=== PATIENT | male | born 1995 | race Caucasian/White ===

== ENCOUNTER 2017-01-09 17:23 | Emergency (ER) | payer OTHER ==
[2017-01-09 17:32] VITALS: BP 117/79
[2017-01-09] MEDS ORDERED: IBUPROFEN 800 MG TABLET PO STA (18:24)
--- NOTE | 2017-01-09 18:32 | ED Physician Documentation ---
PD HPI UPPER EXT INJURY - Stated complaint Stated Complaint: FINGER LAC - Chief complaint Chief Complaint: Ext Problem - History obtained from History obtained from: Patient - History of Present Illness Location: Right, Finger (5th) Type of injury: Laceration Where injury occurred: Home Timing - onset: How many hours ago (1) Timing - duration: Hours (1) Timing - details: Abrupt onset Pain level max: 7 Pain level now: 4 Improved by: Rest Worsened by: Moving, Palpating Associated symptoms: No: Weakness, Numbness, Tingling, Swelling, Discolored Contributing factors: No: Anticoagulated, Prior ortho surgery, Prosthetic joint Similar symptoms before: Has not had sx before Recently seen: Not recently seen - Additonal information Additional information: states dropped a razor blade and tried to catch it. lacerated R 5th digit. Review of Systems Neurologic: denies: Focal weakness, Numbness, Headache PD PAST MEDICAL HISTORY - Past Medical History Past Medical History: Yes Other Past Medical History: pectus excavitum - Past Surgical History Past Surgical History: Yes HEENT: Tonsil/Adenoidectomy - Present Medications Home Medications: Ambulatory Orders Medication Instructions Recorded Confirmed Ibuprofen [Motrin] 800 mg PO Q8H PRN #30 tablet 01/09/17 - Allergies Allergies/Adverse Reactions: Allergies Allergy/AdvReac Type Severity Reaction Status Date / Time No Known Drug Allergies Allergy Verified 01/09/17 17:32 - Social History Does the pt smoke?: Yes Smoking Status: Current every day smoker Does the pt drink ETOH?: No Does the pt have substance abuse?: No - Immunizations Immunizations are current?: Yes PD ED PE NORMAL - Vitals Vital signs reviewed: Yes - General General: Alert and oriented X 3, No acute distress - Derm Derm: Warm and dry - Extremities Extremities: Other (r 5th digit - NVI. flap laceration over the dorsal aspect of the prox phalanx. No tendon injury. FROM present. Strong against resistance. ) - Neuro Neuro: Alert and oriented X 3 - Psych Psych: Normal mood, Normal affect Results - Vitals Vitals: Vital Signs - 24 hr 01/09/17 17:30 Temperature 36.9 C Heart Rate 75 Respiratory 18 Rate Blood Pressure 117/79 O2 Saturation 100 Oxygen O2 Source Room air Procedures - Laceration (location) R 5th digit Length in cm: 2 Wound type: Curved, Flap, Clean Neurovascular status: Sensory intact, Motor intact, Vascular intact Tendon involvement: Tendon intact. No: Tendon Injury Wound Preparation: Irrigated copiously NS Skin layer closure: Dermabond Other: Patient tolerated well, No complications, Neurovascular intact, Dressing applied (finger splint), Tetanus UTD Complexity: Simple PD MEDICAL DECISION MAKING - ED course Complexity details: reviewed results, re-evaluated patient, considered differential, d/w patient ED course: Patient is a 21-year-old male who sustained a laceration to the dorsum of the right fifth digit, proximal phalanx. Does have pain with range of motion, but tendon appears intact. The wound was explored to the base. Full range of motion, extension and flexion against resistance. The wound is very superficial and concerned that sutures would not hold well, after discussion with the patient, we will place him on Dermabond with a finger splint and see how he progresses. Recommended to him that if he has having continued pain he should follow-up with a hand specialist for repeat evaluation. Patient counseled regarding signs and symptoms for which I believe and urgent re- evaluation would be necessary. Patient with good understanding of and agreement to plan and is comfortable going home at this time This document was made in part using voice recognition software. While efforts are made to proofread this document, sound alike and grammatical errors may occur. Departure - Departure Disposition: 01 Home, Self Care Clinical Impression: Finger laceration Qualifiers: Encounter type: initial encounter Finger: little finger Damage to nail status: without damage Foreign body presence: without foreign body Laterality: right Qualified Code(s): S61.216A - Laceration without foreign body of right little finger without damage to nail, initial encounter Condition: Good Instructions: ED Laceration Hand Follow-Up: Nehemias Quintana MD [Primary Care Provider] - Within 1 week (for wound check) Prescriptions: Ibuprofen [Motrin] 800 mg PO Q8H PRN #30 tablet PRN Reason: PAIN &/OR FEVER Comments: You need to wear the splint for the next 7-10 days. Follow-up with your doctor before removing the splint to ensure that enough healing has occurred. Return if you worsen. Discharge Date/Time: 01/09/17 18:38
[2017-01-09] MEDS ORDERED: IBUPROFEN 800 MG TABLET PO ONE (18:37)
== END 2017-01-09 18:38 | disposition home or self-care (01) ==
LOC: ED 17:23
DX: S61.216A Laceration without foreign body of right little finger without damage to nail, initial encounter (principal); W26.8XXA Contact with other sharp object(s), not elsewhere classified, initial encounter; Y92.019 Unspecified place in single-family (private) house as the place of occurrence of the external cause; Q67.6 Pectus excavatum; F17.200 Nicotine dependence, unspecified, uncomplicated
CPT/HCPCS: 12001; 99283; A9270

== ENCOUNTER 2017-12-13 16:52 | Emergency (ER) | payer OTHER ==
[2017-12-13 17:29] LABS: MUDS CUTOFF CONCENTRATIONS CUTOFF CONC BELOW:
[2017-12-13 17:41] LABS: AMPHETAMINE SCREEN,URINE NEGATIVE (NEGATIVE); BENZODIAZEPINES SCREEN, URINE NEGATIVE (NEGATIVE); COCAINE SCREEN URINE NEGATIVE (NEGATIVE); METHADONE SCREEN, URINE NEGATIVE (NEGATIVE); METHAMPHETAMINES SCREEN, URINE NEGATIVE (NEGATIVE); OPIATE SCREEN, URINE NEGATIVE (NEGATIVE); OXYCODONE SCREEN, URINE NEGATIVE (NEGATIVE); PROPOXYPHENE SCREEN, URINE NEGATIVE (NEGATIVE); TRICYCLIC ANTIDEPRESSANT,URINE NEGATIVE (NEGATIVE)
[2017-12-13 18:02] LABS: ALBUMIN 4.7 g/dL (3.2-5.5); ALBUMIN/GLOBULIN RATIO 1.7 (1.0-2.2); ALKALINE PHOSPHATASE 39 IU/L (42-121); ALT ALANINE AMINOTRANSFERASE 11 IU/L (10-60); AST ASPARTATE AMINOTRANSFERASE 12 IU/L (10-42); BILIRUBIN,TOTAL 0.4 mg/dL (0.2-1.0); BUN - BLOOD UREA NITROGEN 13 mg/dL (6-20); CALCIUM 9.6 mg/dL (8.5-10.3); CARBON DIOXIDE - CO2 29 mmol/L (21-32); CHLORIDE 103 mmol/L (101-111); CREATININE 0.8 mg/dL (0.6-1.2); GFR - MDRD 122 (>89); GLUCOSE 92 mg/dL (70-100); LIPASE 28 U/L (22-51); SALICYLATE < 6.0 mg/dL; SODIUM 139 mmol/L (135-145); TOTAL PROTEIN 7.5 g/dL (6.7-8.2)
[2017-12-13 18:05] LABS: ACETAMINOPHEN < 10 ug/mL (10-30)
--- NOTE | 2017-12-13 22:02 | ED Physician Documentation ---
PD HPI MHE - Stated complaint Stated Complaint: SI/MHE - Chief complaint Chief Complaint: MHE - History obtained from History obtained from: Patient - History of Present Illness Primary symptom: Depression Timing - onset: How many months ago (2) Pain level max: 0 Pain level now: 0 Contributing factors: Family Recently seen: Not recently seen - Additional information Additional information: Patient complains of feeling depressed for approximately two months with vague suicidal ideation, but no specific plan nor time frame in mind. He felt more depressed since last night after having a minor argument with his . 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 He presents the emergency department voluntarily for mental health evaluation. he says he has been recently evaluated at [facility] for mental health, and was told he would likely benefit from being on an antidepressant, and thus was being referred to a psychiatrist. Unfortunately, the closest appointment to see the psychiatrist is one month away. Review of Systems Cardiac: reports: Reviewed and negative Respiratory: reports: Reviewed and negative GI: reports: Reviewed and negative Psychiatric: reports: Depressed, Suicidal (vague suicidal thoughts without specific plans nor timeframe). denies: Homicidal PD PAST MEDICAL HISTORY - Past Medical History Past Medical History: Yes Psych: Depression, Other Other Past Medical History: SI - Past Surgical History Past Surgical History: Yes HEENT: Tonsil/Adenoidectomy - Present Medications Home Medications: Ambulatory Orders Medication Instructions Recorded Confirmed Ibuprofen [Motrin] 800 mg PO Q8H PRN #30 tablet 01/09/17 Mirtazapine [Remeron] 7.5 mg PO HS #20 tablet 12/14/17 - Allergies Allergies/Adverse Reactions: Allergies Allergy/AdvReac Type Severity Reaction Status Date / Time No Known Drug Allergies Allergy Verified 12/13/17 17:20 - Social History Does the pt smoke?: Yes Smoking Status: Current every day smoker Does the pt drink ETOH?: No Does the pt have substance abuse?: No - Immunizations Immunizations are current?: Yes PD ED PE NORMAL - Vitals Vital signs reviewed: Yes - General General: Alert and oriented X 3, No acute distress, Well developed/nourished - HEENT HEENT: PERRL, EOMI - Cardiac Cardiac: RRR, No murmur - Respiratory Respiratory: No respiratory distress, Clear bilaterally - Neuro Neuro: Alert and oriented X 3, hourly shift manager 2-12 intact, Normal speech Eye Opening: Spontaneous Motor: Obeys Commands Verbal: Oriented GCS Score: 15 - Psych Psych: Normal mood, Normal affect Results - Vitals Vitals: Vital Signs - 24 hr 12/14/17 09:42 Heart Rate 68 Respiratory 16 Rate Blood Pressure 123/68 O2 Saturation 99 Oxygen O2 Source Room air - Labs Labs: Laboratory Tests 12/13/17 12/13/17 17:20 17:43 Sodium 139 Potassium 3.9 Chloride 103 Carbon Dioxide 29 Anion Gap 7.0 BUN 13 Creatinine 0.8 Estimated GFR (MDRD) 122 Glucose 92 Calcium 9.6 Total Bilirubin 0.4 AST 12 ALT 11 Alkaline Phosphatase 39 L Total Protein 7.5 Albumin 4.7 Globulin 2.8 Albumin/Globulin Ratio 1.7 Lipase 28 Salicylates < 6.0 Urine Opiates Screen NEGATIVE Ur Oxycodone Screen NEGATIVE Urine Methadone Screen NEGATIVE Ur Propoxyphene Screen NEGATIVE Acetaminophen < 10 L Ur Barbiturates Screen NEGATIVE Ur Tricyclics Screen NEGATIVE Ur Phencyclidine Scrn NEGATIVE Ur Amphetamine Screen NEGATIVE U Methamphetamines Scrn NEGATIVE U Benzodiazepines Scrn NEGATIVE Urine Cocaine Screen NEGATIVE U Cannabinoids Screen NEGATIVE Ethyl Alcohol < 5.0 PD MEDICAL DECISION MAKING - ED course Complexity details: reviewed results, re-evaluated patient, considered differential, d/w patient ED course: obtained Telepsych consult. There was some delay between request for the consult and when it was done. I was not informed when it was complete, and only noticed by checking in the computer notes and coming across the note from the Telepsych plater hot dip. I had felt patient was able to contract for safety and intended to send patient home, but both patient and I agreed that patient would benefit from starting an antidepressant now rather than waiting another month to see psychiatry. The note from Telepsych suggests admission to hospital for this patient and rx remeron 7.5mg PO QHS. Thus, patient held until SW could eval in AM (patient was very understanding, calm, and cooperative when I explained the situation to him). SW agrees with my original plan, which is d/c home and f/u later today at [facility] to expedite, if possible, mental health evaluation. - Sepsis Event Vital Signs: Vital Signs - 24 hr 12/14/17 09:42 Heart Rate 68 Respiratory 16 Rate Blood Pressure 123/68 O2 Saturation 99 Oxygen O2 Source Room air Departure - Departure Disposition: 01 Home, Self Care Clinical Impression: Depressive disorder Condition: Good Instructions: ED Depression Follow-Up: CHRISTINE Antunez [Provider Group] (Today) ANNAMARIA ALMENDAREZ DO [Primary Care Provider] - Prescriptions: Mirtazapine [Remeron] 7.5 mg PO HS #20 tablet Discharge Date/Time: 12/14/17 09:42
--- NOTE | 2017-12-14 02:19 | TELEPSYCH PHYS NOTE ---
Telepsych Note - CHIEF COMPLAINT/HX OF PRESENT ILLNESS Cheif Complaint and History of Present Illness: PT presents with c/o feeling depressed and suicidal HPI: Pt is a 22y/o mwm with who presents with c/o feeling depressed and suicidal. He denied having a plan or h/o attempts. Pt denied thoughts of harm to others or h/o violence beyond fights in high school. Pt c/o poor sleep, poor energy and poor appetite. He denied h/o trauma or abuse. He denied s/o leilani. He does endorse visual hallucinations of seeing shadows and feeling unsafe when home alone. He admits to feeling hopeless and said his is worried about him. Pt says he drinks alcohol but denied h/o blackouts, DTs or sz. He tried marijuana "years ago" but denied further illicit drug use. - SI/HI/SELF HARM SI/HI/SELF HARM (CURRENT OR HISTORY OF):: SI SI/HI/Self Harm Text (Current or History of):: Pt denied having a plan or h/o self harm. He says he has been feeling suicidal the past few months and it is getting worse. He denied any stressors or contributors to depression - VIOLENCE/LEGAL/COLLATERAL Violence - Legal - Collateral: NO legal issues - PSYCHIATRIC HX/TREATMENT HX Psychiatric: Depression, Other Psychiatric/Treatment Hx Other: Pt says he went to therapy as a child when his parents . He denied hospitalizations or substance treatment. - DRUG/ALCOHOL HX Substance use/abuse/alcohol text: Pt says he drinks some alcohol but denied blackouts, DTs or sz. He tried marijuana in the past but denied current illicit drug use. - MEDICAL HX Does the pt have a hx of MRSA?: No Neurological History: Migraines PMH Other: PT says he has migraines. He denied h/o sz or head trauma - HOME MEDICATIONS Home Meds (as last confirmed): Celebrex - ALLERGIES Allergies (as last confirmed): Allergies Allergy/AdvReac Type Severity Reaction Status Date / Time No Known Drug Allergies Allergy Verified 12/13/17 17:20 - FAMILY PSYCH/SUICIDE/SOCIAL HX-MENTAL Family - Suicide - Social Hx and Mental Status Exam: Pt said his uncle has schizoaffective d/o; His father is an alcoholic and mom binge drinks. His maternal grandmother is an alcoholic. Pt is not aware of any suicides in the family. - PATIENT PROBLEM LIST (1) Depression Qualifiers: Depression Type: major depressive disorder Active/Remission status: currently active Major depression episode severity: severe Psychotic features: with psychotic features Impression: Pt reports chronic depression that has gotten worse of the past few months to the point of feeling suicidal. He denied contributors and said it came out of the blue. He has no substance issues. FH is positive for an uncle with schizoaffective d/o and alcohol abuse on both sides of his family. MSE: PT presents appropriately groomed with limited eye contact. His speech is soft but normal rate. He reports feeling hopeless and depressed and he displays a constricted affect. Thought process was linear and goal directed. He denied s/o leilani and did not appear manic. He admits to seeing shadows. He did not appear to be responding to internal stimuli. Insight and judgment were fair. (2) Suicidal ideation Impression: Pt with no prior self harm, however, severe depression along with reports of paranoia and visual hallucinations may contribute to elevated risk of acting on thoughts of self harm. (3) Visual hallucination Impression: PT does endorse seeing shadows and feeling unsafe when alone. He has a fh significant for psychosis, however he also describes major depression. Hallucinations possibly due to severe depression vs new onset psychosis. - TREATMENT/PHARMACOLOGICAL RECOMMENDATION Treatment - Pharmacological - Therapy Recommendations: 22y/o mwm with depression presents with c/o feeling hopeless and suicidal. He admits to visual hallucinations of seeing shadows and feeling fearful when alone. He has a family hx significant of affective d/o and psychosis. Pt describes a major depressive episode with no stressors or identifiable precipitant. Psychotic sx may be a result of untreated depression vs possible onset of psychotic d/o. Given pt report of hopelessness, limited supports, concern of his and suicidal thoughts, recommend admit to inpatient for safety. 1. Admit to inpatient psych for mood stabilization and safety. 2. Provide safety precautions. 3. Recommend start Remeron 7.5mg po qhs for depression, insomnia and to boost appetite. - TIME SPENT & PROVIDER LOCATION Telepsych consultation conducted via videoconferencing: Yes List names and roles of persons who participated in consult: Patient. Andree Sandoval MD Telepsych Provider Location: [place] Time Telepsych consult began: 05:00 Time Telepsych consult completed: 05:45
[2017-12-14] MEDS ORDERED: NICOTINE 14 MG PATCH TOP STA (04:55)
[2017-12-14] MEDS ORDERED: CELECOXIB 100 MG CAPSULE PO STA (08:32)
[2017-12-14 09:42] VITALS: BP 123/68
== END 2017-12-14 09:42 | disposition home or self-care (01) ==
LOC: ED 16:52
DX: F32.3 Major depressive disorder, single episode, severe with psychotic features (principal); R45.851 Suicidal ideations; R44.1 Visual hallucinations
CPT/HCPCS: 36415; 80053; 80306; 80307; 80320; 80329; 83690; 99283; A9270; G0425; Q3014

== ENCOUNTER 2018-01-02 10:06 | Emergency (ER) | payer OTHER ==
[2018-01-02] MEDS ORDERED: IOPAMIDOL-300 100 ML VIAL IVP ONE ×2 (10:07→13:15)
--- NOTE | 2018-01-02 11:06 | XRAY Report ---
Reason: chest pain Procedure Date: 01/02/2018 Accession Number: [id number] / [id number] Procedure: XR - Chest 2 View X-Ray CPT Code: 53667 FULL RESULT: EXAM: CHEST RADIOGRAPHY EXAM DATE: 01/02/2018 10:56 AM. CLINICAL HISTORY: Acute chest pain. COMPARISON: None. TECHNIQUE: 2 views. FINDINGS: Lungs/Pleura: No focal opacities evident. No pleural effusion. No pneumothorax. Normal volumes. Mediastinum: Heart and mediastinal contours are unremarkable. Pectus excavatum. Other: None. IMPRESSION: No acute cardiopulmonary abnormality. RADIA
[2018-01-02 11:12] LABS: BASOPHILS % (AUTO) 0.6 %; EOSINOPHILS # (AUTO) 0.2 10^3/uL (0.0-0.7); EOSINOPHILS % (AUTO) 3.3 %; HGB - HEMOGLOBIN 14.8 g/dL (14.0-18.0); LYMPHOCYTES # (AUTO) 2.5 10^3/uL (1.5-3.5); LYMPHOCYTES % (AUTO) 45.6 %; MEAN CORPUSCULAR HEMOGLOBIN 29.9 pg (27.0-31.0); MEAN CORPUSCULAR HGB CONC 34.4 g/dL (32.0-36.0); MEAN CORPUSCULAR VOLUME 87.2 fL (80.0-94.0); MEAN PLATELET VOLUME 8.4 fL (7.4-11.4); MONOCYTES # (AUTO) 0.5 10^3/uL (0.0-1.0); MONOCYTES % (AUTO) 8.6 %; NEUTROPHILS # (AUTO) 2.3 10^3/uL (1.5-6.6); NEUTROPHILS % (AUTO) 41.9 %; PLT - PLATELET COUNT 187 10^3/uL (130-450); RED BLOOD COUNT 4.95 10^6/uL (4.70-6.10); RED CELL DISTRIBUTION WIDTH 14.1 % (12.0-15.0); WHITE BLOOD COUNT 5.6 x10^3/uL (4.8-10.8)
--- NOTE | 2018-01-02 11:33 | ED Physician Documentation ---
PD HPI CHEST PAIN - Stated complaint Stated Complaint: CHEST PAIN - Chief complaint Chief Complaint: Cardiac - History obtained from History obtained from: Patient - History of Present Illness Timing - onset: Today Timing - onset during: Light activity (he was standing with group for morning report. No strenuous activity.) Timing - details: Abrupt onset, Still present Quality: Aching, Sharp, Pain Location: Substernal, Left chest Radiation: Back Improved by: No: Rest Worsened by: Inspiration, Movement. No: Palpation Associated symptoms: Shortness of air, Feeling faint / dizzy. No: Diaphoresis, Nausea, General Weakness Similar symptoms before: Has not had sx before Recently seen: Not recently seen Review of Systems Constitutional: denies: Fever, Chills Nose: denies: Rhinorrhea / runny nose, Congestion Throat: denies: Sore throat Cardiac: denies: Palpitations, Pedal edema, Calf pain Respiratory: denies: Dyspnea, Cough, Hemoptysis, Wheezing GI: denies: Abdominal Pain, Nausea, Vomiting, Diarrhea Skin: denies: Rash, Lesions PD PAST MEDICAL HISTORY - Past Medical History Cardiovascular: None Respiratory: None Neuro: Migraines Psych: Depression, Other - Past Surgical History Past Surgical History: Yes HEENT: Tonsil/Adenoidectomy - Present Medications Home Medications: Ambulatory Orders Medication Instructions Recorded Confirmed Ibuprofen [Motrin] 800 mg PO Q8H PRN #30 tablet 01/09/17 Mirtazapine [Remeron] 7.5 mg PO HS #20 tablet 12/14/17 Naproxen 375 mg PO BID #20 tablet 01/02/18 Tramadol HCl 50 mg PO Q6H PRN #20 tablet 01/02/18 - Allergies Allergies/Adverse Reactions: Allergies Allergy/AdvReac Type Severity Reaction Status Date / Time No Known Drug Allergies Allergy Verified 12/13/17 17:20 - Social History Does the pt smoke?: Yes Smoking Status: Current every day smoker Does the pt drink ETOH?: No Does the pt have substance abuse?: No - Family History Family history: reports: Aortic aneursym - Immunizations Immunizations are current?: Yes PD ED PE NORMAL - Vitals Vital signs reviewed: Yes - General General: Alert and oriented X 3, No acute distress, Well developed/nourished - HEENT HEENT: Pharynx benign - Neck Neck: Supple, no meningeal sign, No adenopathy - Cardiac Cardiac: RRR, No murmur - Respiratory Respiratory: Clear bilaterally, Other (no chestwall tenderness) - Abdomen Abdomen: Soft, Non tender - Back Back: No CVA TTP, No spinal TTP - Derm Derm: Normal color, Warm and dry - Extremities Extremities: No tenderness to palpate, Normal ROM s pain, No edema, No calf tenderness / cord - Neuro Neuro: Alert and oriented X 3, No motor deficit, No sensory deficit, Normal speech Results - Vitals Vitals: Oxygen O2 Source Room air - EKG (time done) 10:16 Rate: Rate (enter#) (91) Rhythm: NSR [place]: Normal Intervals: Normal [place] Ischemia: Normal ST segments. No: ST elevation c/w ischemia, ST depression Compare to prior EKG: Old EKG unavailable - Labs Labs: Laboratory Tests 01/02/18 01/02/18 01/02/18 11:00 11:00 11:00 WBC 5.6 RBC 4.95 Hgb 14.8 Hct 43.1 MCV 87.2 MCH 29.9 MCHC 34.4 RDW 14.1 Plt Count 187 MPV 8.4 Neut # (Auto) 2.3 Lymph # (Auto) 2.5 Drew # (Auto) 0.5 Eos # (Auto) 0.2 Baso # (Auto) 0.0 Absolute Nucleated RBC 0.00 Nucleated RBC % 0.0 Sodium 139 Potassium 4.0 Chloride 102 Carbon Dioxide 28 Anion Gap 9.0 BUN 12 Creatinine 0.8 Estimated GFR (MDRD) 122 Glucose 93 Calcium 9.8 Total Bilirubin 0.6 AST 20 ALT 22 Alkaline Phosphatase 39 L Troponin I < 0.04 Total Protein 7.5 Albumin 4.7 Globulin 2.8 Albumin/Globulin Ratio 1.7 Lipase 30 - Rads (name of study) chest xray Radiology: Prelim report reviewed (normal) ct-a aorta chest Radiology: Prelim report reviewed (no vascular aneurysm nor dissection. No other acute pathology. ) PD MEDICAL DECISION MAKING - ED course Complexity details: reviewed results, re-evaluated patient, considered differential (abrupt pain in chest radiating into back in young, tall, thin gentleman, who says his uncle has history of aortic aneurysm (older age). CXR and ECG are normal, but got CT-A aorta to better evaluate. This was negative. Left with pleurisy or chest wall pain. ), d/w patient - Sepsis Event Vital Signs: Oxygen O2 Source Room air Departure - Departure Disposition: 01 Home, Self Care Clinical Impression: Atypical chest pain Condition: Stable Record reviewed to determine appropriate education?: Yes Instructions: ED Chest Pain Atypical Unkn Cause, ED Chest Pain Costochondritis Follow-Up: ANNAMARIA ALMENDAREZ DO [Primary Care Provider] - Prescriptions: Naproxen 375 mg PO BID #20 tablet Tramadol HCl 50 mg PO Q6H PRN #20 tablet PRN Reason: Pain Comments: There are no signs of the heart or lung or vascular problems on testing today. Presume the pain is some inflammation either around the lung or in the chest wall. These would not show up on any testing per se. We treated with anti- inflammatories and pain medicine and rest for a couple of days. Medications as prescribed. Follow-up with your primary care in 2-3 days. Return if other symptoms develop. Forms: Activity restrictions Discharge Date/Time: 01/02/18 13:59
[2018-01-02 11:34] LABS: ALBUMIN 4.7 g/dL (3.2-5.5); ALBUMIN/GLOBULIN RATIO 1.7 (1.0-2.2); BILIRUBIN,TOTAL 0.6 mg/dL (0.2-1.0); CALCIUM 9.8 mg/dL (8.5-10.3); CREATININE 0.8 mg/dL (0.6-1.2); TOTAL PROTEIN 7.5 g/dL (6.7-8.2)
[2018-01-02] MEDS ORDERED: SODIUM CHLORIDE 0.9% 1,000 ML IV ONE (11:56)
[2018-01-02] MEDS ORDERED: KETOROLAC 60 MG/2 ML VIAL IVP STA (11:56)
[2018-01-02] MEDS ORDERED: IOPAMIDOL-300 100 ML VIAL ONE (12:00)
--- NOTE | 2018-01-02 13:00 | CT Report ---
Reason: abrupt chest pain today Procedure Date: 01/02/2018 Accession Number: [id number] / [id number] Procedure: CT - Chest Angio (AORTA) CPT Code: FULL RESULT: EXAM: CTA CHEST EXAM DATE: 01/02/2018 12:26 PM. CLINICAL HISTORY: Acute onset chest pain today. COMPARISON: None. TECHNIQUE: Prior to and following intravenous administration of ISOVUE 300 80mL, multiplanar 3D/MIP reconstruction of the thoracic aorta was performed. In accordance with CT protocol optimization, one or more of the following dose reduction techniques were utilized for this exam: automated exposure control, adjustment of mA and/or KV based on patient size, or use of iterative reconstructive technique. FINDINGS: Vascular Structures: Normal. No aneurysm, dissection, or significant atherosclerotic disease of the thoracic aorta. The visualized pulmonary arteries are within normal limits. Lungs/Pleura: No consolidation, nodules, or edema. No effusions or pneumothorax. Mediastinum: Normal. No cardiac enlargement or adenopathy. Upper Abdomen: Unremarkable. Other: None. IMPRESSION: 1. No convincing acute cardiopulmonary abnormality. No evidence of aortic aneurysm or dissection. No evidence of acute pulmonary embolism. 2. Other findings as noted above. RADIA
[2018-01-02] MEDS ORDERED: MORPHINE 10 MG/ML VIAL IVP STA (13:18)
[2018-01-02 13:37] VITALS: BP 134/90
== END 2018-01-02 13:59 | disposition home or self-care (01) ==
LOC: ED 10:06
DX: R07.89 Other chest pain (principal); R94.31 Abnormal electrocardiogram [ECG] [EKG]; F17.200 Nicotine dependence, unspecified, uncomplicated
CPT/HCPCS: 36415; 71046; 71275; 80053; 83690; 84484; 85025; 93005; 96361; 96374; 99283; Q9967

== ENCOUNTER 2018-01-04 09:28 | Emergency (ER) | payer OTHER ==
[2018-01-04] MEDS ORDERED: LIDOCAINE PATCH 5% TOP PRN (10:39)
[2018-01-04] MEDS ORDERED: ONDANSETRON 4 MG/2 ML VIAL IVP STA ×2 (10:39→14:04)
[2018-01-04] MEDS ORDERED: SODIUM CHLORIDE 0.9% 1,000 ML IV ONE (10:39)
[2018-01-04] MEDS ORDERED: ACETAMINOPHEN 1,000 MG/100 ML 100 ML IV STA (10:39)
--- NOTE | 2018-01-04 10:44 | ED Physician Documentation ---
History of Present Illness - Stated complaint Stated Complaint: HEADACHE,NAUSEA,VOMITTING,SORENESS - Chief complaint Chief Complaint: Neuro - Additonal information Additional information: hx from pt and note from [facility] practice clinic 22 AD [place] male third ED visit this month seen here several days ago for CP and had a neg CTA chest now has had a posterior CALZADA for 2 days this AM popped his neck (twisted from side to side, no trauma) and the CALZADA became severe with NV went to [place] [facility] was examined by provider and per note - temp 37.6, 126/84, 96, 10/10 worst CALZADA of life, meningismus noted on exam and was advised to go immediately to ED by POV pt denies fever no trauma no CO exposure no ill contacts no numbness or focal weakness, just weak all over Review of Systems Constitutional: reports: Fatigue. denies: Fever Eyes: reports: Photophobia Cardiac: denies: Chest pain / pressure GI: reports: Nausea, Vomiting. denies: Abdominal Pain Musculoskeletal: reports: Neck pain (occipital CALZADA / upper neck) Neurologic: reports: Headache. denies: Focal weakness, Numbness, Head injury Endocrine: denies: Easy bruising / bleeding Immunocompromised: denies: Immunocompromised PD PAST MEDICAL HISTORY - Past Medical History Cardiovascular: None Respiratory: None Neuro: Migraines Psych: Depression, Other - Past Surgical History Past Surgical History: Yes HEENT: Tonsil/Adenoidectomy - Present Medications Home Medications: Ambulatory Orders Medication Instructions Recorded Confirmed Ibuprofen [Motrin] 800 mg PO Q8H PRN #30 tablet 01/09/17 Mirtazapine [Remeron] 7.5 mg PO HS #20 tablet 12/14/17 Naproxen 375 mg PO BID #20 tablet 01/02/18 Tramadol HCl 50 mg PO Q6H PRN #20 tablet 01/02/18 - Allergies Allergies/Adverse Reactions: Allergies Allergy/AdvReac Type Severity Reaction Status Date / Time No Known Drug Allergies Allergy Verified 01/04/18 09:39 - Social History Does the pt smoke?: Yes Smoking Status: Current every day smoker Does the pt drink ETOH?: No Does the pt have substance abuse?: No - Immunizations Immunizations are current?: Yes PD ED PE NORMAL - Vitals Vital signs reviewed: Yes - HEENT HEENT: Atraumatic, PERRL (not hazy,, pupils reactive, gobes soft, no TA TTP), Other (fundi diff to examine 2/2 photophibia but no hemorrhage seen) - Neck Neck: Supple, no meningeal sign (able to fully flex and extend) - Cardiac Cardiac: RRR - Respiratory Respiratory: No respiratory distress, Clear bilaterally - Derm Derm: Normal color - Neuro Neuro: Alert and oriented X 3, reexaminer 2-12 intact, No motor deficit, No sensory deficit, Normal speech Eye Opening: Spontaneous Motor: Obeys Commands Verbal: Oriented GCS Score: 15 Results - Vitals Vitals: Vital Signs - 24 hr 01/04/18 01/04/18 01/04/18 09:32 11:58 13:47 Temperature 36.7 C 36.7 C 36.8 C Heart Rate 84 74 88 Respiratory 16 16 18 Rate Blood Pressure 120/73 127/75 114/75 O2 Saturation 100 96 100 Oxygen O2 Source Room air - Labs Labs: Microbiology 01/04/18 12:30 CSF Culture - Preliminary Cerebral Spinal Fluid Laboratory Tests 01/04/18 01/04/18 10:44 12:30 Sodium 137 Potassium 4.0 Chloride 99 L Carbon Dioxide 30 Anion Gap 8.0 BUN 12 Creatinine 0.9 Estimated GFR (MDRD) 107 Glucose 97 Calcium 9.5 CSF Color COLORLESS CSF Clarity CLEAR Xanthrochromic ABSENT CSF WBC 0 CSF RBC 0 CSF Cell Count Tube # CSF TUBE# 4 CSF Glucose 53 CSF Total Protein 64 H - Rads (name of study) CTH Radiology: See rad report (neg) Procedures - Lumbar Puncture Position: Laying right side Location: L3-L4 Anesthesia: Local lidocaine CSF: Clear Other: Sterile prep and drape, Patient tolerated well, No complications, Bleeding (small external after procedure) PD MEDICAL DECISION MAKING - ED course ED course: CTH neg recent CTA chest shpwed no dissection of proximal neck vessels LP neg for SAH and meningitis pt feeling better will dc - Sepsis Event Vital Signs: Vital Signs - 24 hr 01/04/18 01/04/18 01/04/18 09:32 11:58 13:47 Temperature 36.7 C 36.7 C 36.8 C Heart Rate 84 74 88 Respiratory 16 16 18 Rate Blood Pressure 120/73 127/75 114/75 O2 Saturation 100 96 100 Oxygen O2 Source Room air Departure - Departure Disposition: 01 Home, Self Care Clinical Impression: Headache Qualifiers: Headache type: unspecified Headache chronicity pattern: acute headache Intractability: not intractable Qualified Code(s): R51 - Headache Condition: Good Instructions: ED Cephalgia Unspecified Follow-Up: ANNAMARIA ALMENDAREZ DO [Primary Care Provider] - (tomorrow for a recheck) Comments: The CT of your head and the spinal tap results were normal - no bleeding in the brain and no infection. You just had an angiogram of your chest and that did not show any problems with the visualized portions of the neck blood vessels. Your history does not suggest carbon monoxide exposure Your exam does not suggest an eye or sinus problem as the cause And you are feeling better in the ER So I think it is OK for you to go home Off work today Motrin and tylenol as needed for the pain - zofran for vomiting - lidocaine patches to the back of your neck as needed up to 12 hr a day Follow up at [facility] tomorrow for a recheck and duty status Forms: Activity restrictions
[2018-01-04 11:01] LABS: CALCIUM 9.5 mg/dL (8.5-10.3); CREATININE 0.9 mg/dL (0.6-1.2)
--- NOTE | 2018-01-04 11:56 | CT Report ---
Reason: severe posterior CALZADA Procedure Date: 01/04/2018 Accession Number: [id number] / [id number] Procedure: CT - Head W/O CPT Code: FULL RESULT: EXAM: CT HEAD EXAM DATE: 01/04/2018 11:11 AM. CLINICAL HISTORY: Headache. COMPARISON: None. TECHNIQUE: Multiaxial CT images were obtained from the foramen magnum to the vertex. Reformats: Coronal. IV contrast: None. In accordance with CT protocol optimization, one or more of the following dose reduction techniques were utilized for this exam: automated exposure control, adjustment of mA and/or KV based on patient size, or use of iterative reconstructive technique. FINDINGS: Parenchyma: No intraparenchymal hemorrhage. No evidence of mass, midline shift, or CT findings of infarction. Edward-white differentiation is distinct. Extraaxial Spaces: Normal for age. No subdural or epidural collections. Ventricles: Normal in size and position. Sinuses and Orbits: Imaged paranasal sinuses, orbits, and mastoids show no significant abnormality. Bones: Unremarkable. Other: None. IMPRESSION: Normal head CT. RADIA
[2018-01-04] MEDS ORDERED: ONDANSETRON 4 MG/2 ML VIAL ONE (12:25)
[2018-01-04] MEDS ORDERED: MORPHINE 2 MG/ML CARPUJECT ONE (12:25)
[2018-01-04] MEDS ORDERED: LIDOCAINE 1% 2 ML VIAL ONE (12:25)
[2018-01-04 13:00] LABS: CLARITY,CSF CLEAR (CLEAR); COLOR,CSF COLORLESS (COLORLESS); CSF TUBE # CSF TUBE# 4; CSF XANTHOCHROMIA ABSENT (ABSENT); RED BLOOD CELL,CSF 0 /mm^3 (0-1); WHITE BLOOD CELL,CSF 0 /mm^3 (0-5)
[2018-01-04 13:10] LABS: CSF - GLUCOSE 53 mg/dL (45-70)
[2018-01-04 13:48] VITALS: BP 114/75
[2018-01-04] MEDS ORDERED: MORPHINE 2 MG/ML SYRINGE IVP STA (14:04)
[2018-01-04] MEDS ORDERED: LIDOCAINE 1% 2 ML VIAL SUBQ STA (14:05)
== END 2018-01-04 14:18 | disposition home or self-care (01) ==
LOC: ED 09:28
DX: R51 Headache (principal); F17.200 Nicotine dependence, unspecified, uncomplicated
CPT/HCPCS: 36415; 62270; 70450; 80048; 82945; 84157; 87070; 87205; 89051; 96365; 96375; 96376; 99283; 99284; A9270; J0131

== ENCOUNTER 2018-01-09 11:49 | Emergency (ER) | payer OTHER ==
[2018-01-09] MEDS ORDERED: MORPHINE 2 MG/ML CARPUJECT IVP STA (14:11)
[2018-01-09] MEDS ORDERED: METOCLOPRAMIDE 10 MG/2 ML VIAL IVP STA (14:11)
[2018-01-09] MEDS ORDERED: SODIUM CHLORIDE 0.9% 1,000 ML IV ONE (14:11)
[2018-01-09] MEDS ORDERED: diphenhydrAMINE INJ 50 MG/ML VIAL IVP STA (14:11)
--- NOTE | 2018-01-09 14:14 | ED Physician Documentation ---
History of Present Illness - Stated complaint Stated Complaint: NAUSEA,VOMITTING,HEADACHE,FEVER - Chief complaint Chief Complaint: General - History obtained from History obtained from: Patient - History of Present Illness Timing: Other (22-year-old gentleman with history of migraines. 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 He has had a bad month with increased headaches. Since yesterday he has been vomiting and felt hot to his friend without measured fevers. He is vomited several times. He is light sensitive and has had a bad sore throat recently.) Review of Systems Constitutional: reports: Fever (? tactile) Nose: denies: Rhinorrhea / runny nose, Congestion Throat: reports: Sore throat Respiratory: denies: Cough GI: reports: Nausea, Vomiting. denies: Abdominal Pain PD PAST MEDICAL HISTORY - Past Medical History Cardiovascular: None Respiratory: None Neuro: Migraines Psych: Depression, Other - Past Surgical History Past Surgical History: Yes HEENT: Tonsil/Adenoidectomy - Present Medications Home Medications: Ambulatory Orders Medication Instructions Recorded Confirmed Ibuprofen [Motrin] 800 mg PO Q8H PRN #30 tablet 01/09/17 Mirtazapine [Remeron] 7.5 mg PO HS #20 tablet 12/14/17 Naproxen 375 mg PO BID #20 tablet 01/02/18 Tramadol HCl 50 mg PO Q6H PRN #20 tablet 01/02/18 Lidocaine Patch 5% [Lidoderm Patch] 1 each TOP DAILY PRN #10 patch 01/04/18 Ondansetron Odt [Zofran] 4 mg TL Q6H PRN #10 tablet 01/04/18 Promethazine [Phenergan] 25 - 50 mg PO Q6H PRN #10 tab 01/09/18 SUMAtriptan [Imitrex] 25 mg PO BID PRN #10 tablet 01/09/18 - Allergies Allergies/Adverse Reactions: Allergies Allergy/AdvReac Type Severity Reaction Status Date / Time tramadol AdvReac Emesis Verified 01/09/18 12:00 - Social History Does the pt smoke?: Yes Smoking Status: Current every day smoker Does the pt drink ETOH?: No Does the pt have substance abuse?: No - Immunizations Immunizations are current?: Yes PD ED PE NORMAL - Vitals Vital signs reviewed: Yes - General General: Alert and oriented X 3, No acute distress - HEENT HEENT: PERRL, EOMI, Pharynx benign - Neck Neck: Other (Moderate anterior cervical adenopathy) - Cardiac Cardiac: RRR, No murmur - Respiratory Respiratory: No respiratory distress, Clear bilaterally - Abdomen Abdomen: Normal bowel sounds, Soft, Non tender - Derm Derm: Normal color, Warm and dry - Extremities Extremities: No edema, No calf tenderness / cord - Neuro Neuro: Alert and oriented X 3, Normal speech Results - Vitals Vitals: Vital Signs - 24 hr 01/09/18 01/09/18 11:52 15:37 Temperature 36.6 C 36.9 C Heart Rate 86 77 Respiratory 16 16 Rate Blood Pressure 108/62 127/63 O2 Saturation 99 99 Oxygen O2 Source Room air - Labs Labs: Laboratory Tests 01/09/18 01/09/18 01/09/18 14:29 14:50 14:50 WBC 7.4 RBC 5.46 Hgb 16.5 Hct 47.3 MCV 86.7 MCH 30.2 MCHC 34.9 RDW 13.5 Plt Count 192 MPV 9.1 Neut # (Auto) 4.3 Lymph # (Auto) 2.2 [place] # (Auto) 0.8 Eos # (Auto) 0.0 Baso # (Auto) 0.0 Absolute Nucleated RBC 0.01 Nucleated RBC % 0.1 Manual Slide Review Indicated Platelet Estimate NORMAL (130-450,000) Platelet Morphology NORMAL APPEARANCE Sodium Potassium Chloride Carbon Dioxide Anion Gap BUN Creatinine Estimated GFR (MDRD) Glucose Calcium Total Bilirubin AST ALT Alkaline Phosphatase Total Protein Albumin Globulin Albumin/Globulin Ratio Lipase Infectious [place] Assay NEGATIVE Group A Strep Rapid Negative 01/09/18 14:50 WBC RBC Hgb Hct MCV MCH MCHC RDW Plt Count MPV Neut # (Auto) Lymph # (Auto) [place] # (Auto) Eos # (Auto) Baso # (Auto) Absolute Nucleated RBC Nucleated RBC % Manual Slide Review Platelet Estimate Platelet Morphology Sodium 136 Potassium 4.9 Chloride 99 L Carbon Dioxide 29 Anion Gap 8.0 BUN 14 Creatinine 0.4 L Estimated GFR (MDRD) 272 Glucose 92 Calcium 9.7 Total Bilirubin 0.7 AST 18 ALT 16 Alkaline Phosphatase 45 Total Protein 8.4 H Albumin 5.1 Globulin 3.3 Albumin/Globulin Ratio 1.5 Lipase 26 Infectious [place] Assay Group A Strep Rapid PD MEDICAL DECISION MAKING - ED course Complexity details: reviewed old records (Recent negative workups for his headaches including CT and LP.) ED course: 22-year-old gentleman with history of migraines presents with worse symptoms today. Seems like he may have a viral syndrome as well so was checked for mono. No recent complete workup for headaches which was negative including CTA and LP. After the administration of IV fluids, Reglan, Benadryl he was feeling much better. - Sepsis Event Vital Signs: Vital Signs - 24 hr 01/09/18 01/09/18 11:52 15:37 Temperature 36.6 C 36.9 C Heart Rate 86 77 Respiratory 16 16 Rate Blood Pressure 108/62 127/63 O2 Saturation 99 99 Oxygen O2 Source Room air Departure - Departure Disposition: 01 Home, Self Care Clinical Impression: Headache Qualifiers: Headache type: unspecified Headache chronicity pattern: acute headache Intractability: not intractable Qualified Code(s): R51 - Headache Condition: Good Record reviewed to determine appropriate education?: Yes Instructions: ED Headache Migraine Prescriptions: Promethazine [Phenergan] 25 - 50 mg PO Q6H PRN #10 tab PRN Reason: Nausea / Vomiting SUMAtriptan [Imitrex] 25 mg PO BID PRN #10 tablet PRN Reason: Headache Comments: Call your doctor to arrange a follow-up appointment, make the next available appointment. In the interim, return anytime if worse or if new symptoms develop. Discharge Date/Time: 01/09/18 15:37
[2018-01-09 15:01] LABS: BASOPHILS % (AUTO) 0.5 %; EOSINOPHILS % (AUTO) 0.6 %; HGB - HEMOGLOBIN 16.5 g/dL (14.0-18.0); LYMPHOCYTES # (AUTO) 2.2 10^3/uL (1.5-3.5); LYMPHOCYTES % (AUTO) 29.3 %; MEAN CORPUSCULAR HEMOGLOBIN 30.2 pg (27.0-31.0); MEAN CORPUSCULAR HGB CONC 34.9 g/dL (32.0-36.0); MEAN CORPUSCULAR VOLUME 86.7 fL (80.0-94.0); MONOCYTES # (AUTO) 0.8 10^3/uL (0.0-1.0); MONOCYTES % (AUTO) 11.2 %; NEUTROPHILS # (AUTO) 4.3 10^3/uL (1.5-6.6); NEUTROPHILS % (AUTO) 58.4 %; RED BLOOD COUNT 5.46 10^6/uL (4.70-6.10); RED CELL DISTRIBUTION WIDTH 13.5 % (12.0-15.0); WHITE BLOOD COUNT 7.4 x10^3/uL (4.8-10.8)
[2018-01-09 15:29] LABS: ALBUMIN 5.1 g/dL (3.2-5.5); ALBUMIN/GLOBULIN RATIO 1.5 (1.0-2.2); BILIRUBIN,TOTAL 0.7 mg/dL (0.2-1.0); CALCIUM 9.7 mg/dL (8.5-10.3); CREATININE 0.4 mg/dL (0.6-1.2); TOTAL PROTEIN 8.4 g/dL (6.7-8.2)
[2018-01-09 15:38] VITALS: BP 127/63
[2018-01-09 15:38] LABS: MEAN PLATELET VOLUME 9.1 fL (7.4-11.4); PLATELET ESTIMATE, MANUAL NORMAL (130-450,000) (NORMAL); PLATELET MORPHOLOGY NORMAL APPEARANCE (NORMAL); PLT - PLATELET COUNT 192 10^3/uL (130-450)
== END 2018-01-09 15:37 | disposition home or self-care (01) ==
LOC: ED 11:49
DX: R51 Headache (principal); F17.200 Nicotine dependence, unspecified, uncomplicated
CPT/HCPCS: 36415; 80053; 83690; 85025; 86308; 87070; 87430; 96361; 96374; 99283; J1200; J2765